=== PATIENT | female | born 1965 ===

== ENCOUNTER 2020-07-14 09:00 | Outpatient (REF) | payer OTHER, SELFPAY | END 2020-07-14 09:01 | disposition home or self-care (01) | LOC: HO.NEURO 09:00 | PROVIDERS: Visit Provider Internal Medicine | DX: Z13.89 Encounter for screening for other disorder (principal) ==

== ENCOUNTER → 2021-04-11 14:48 | Outpatient (BNVA) | payer OTHER, SELFPAY | PROVIDERS: PCP Internal Medicine; Visit Provider Surgery | DX: D17.20 Benign lipomatous neoplasm of skin and subcutaneous tissue of unspecified limb (principal); Z88.6 Allergy status to analgesic agent | CPT/HCPCS: 99202 ==

== ENCOUNTER 2022-01-09 14:02 | Outpatient (REF) | payer OTHER, SELFPAY ==
--- NOTE | ~2022-01-09 | US_ITS ---
EXAMINATION: US VENOUS ULTRASOUND WITH DOPPLER LOWER EXTREMITY, BILATERAL CLINICAL INFORMATION: Bilateral edema evaluate for DVT COMPARISON: None TECHNIQUE: Ultrasound of the deep veins is performed from the hip to the calf with compression sonography and color and pulse Doppler assessment. Spectral analysis with color-flow imaging is performed. FINDINGS: RIGHT: There is normal venous compression and respiratory variation and augmented flow. The visualized common femoral vein, superficial femoral vein, profunda femoral vein, popliteal vein, and the trifurcation region shows no evidence of deep venous thrombosis. There is no significant popliteal fossa cyst. LEFT: There is normal venous compression and respiratory variation and augmented flow. The visualized common femoral vein, superficial femoral vein, profunda femoral vein, popliteal vein, and the trifurcation region shows no evidence of deep venous thrombosis. There is no significant popliteal fossa cyst. If the patient's symptoms persist, followup ultrasound in 5 days 7 days might be of value to exclude proximal propagation from a non-visualized calf vein. US/US venous duplex LE BI IMPRESSION: No DVT demonstrated in the bilateral lower extremity.
[2022-01-09 14:24] LABS: MANUAL DIFF FLAG NO
[2022-01-09 14:34] LABS: Basophils Percent Auto 0.6 % (0-2); Eosinophils Absolute Auto 0.1 X10*3/uL (0.0-0.4); Eosinophils Percent Auto 1.9 % (0-4); Hematocrit 39.3 % (37.0-47.0); Hemoglobin 13.1 g/dl (12.0-16.0); Imm Gran Abs Auto 0.01 X10*3/uL (0.00-0.03); Imm Gran Pct Auto 0.2 % (0.0-0.4); Lymphocytes Absolute Auto 2.2 X10*3/uL (1.2-4.9); Lymphocytes Percent Auto 42.8 % (20-40); Mean Corpuscular HGB Conc 33.3 g/dl (31.0-35.0); Mean Platelet Volume 10.1 fL (9.4-12.3); Monocytes Absolute Auto 0.5 X10*3/uL (0.1-1.2); Monocytes Percent Auto 10.5 % (2-11); Neutrophils Absolute Auto 2.3 x10*3/uL (2.0-8.3); Platelet Count 213 X10*3/uL (160-400); Red Blood Count 4.68 X10*6/uL (4.20-5.50); Red Cell Distribution Width 12.5 % (11.0-16.0); White Blood Count 5.1 X10*3/uL (4.8-10.8)
[2022-01-09 15:16] LABS: Alanine Aminotransferase 27 U/L (0-31); Albumin Level 4.5 g/dL (3.5-5.0); Alkaline Phosphatase 107 U/L (39-117); Anion Gap 14 (12-20); Aspartate Amino Transferase 22 U/L (5-31); Bilirubin Total 1.3 mg/dL (0.0-1.0); Blood Urea Nitrogen 12 mg/dL (9-16); Calcium 9.5 mg/dL (8.4-10.2); Carbon Dioxide 29 mmol/L (22-29); Chloride 104 mmol/L (96-108); Estimated Glomerular Filt Rate > 60; Glucose Random 130 mg/dL (60-115); Potassium 4.2 mmol/L (3.3-5.1); Sodium 143 mmol/L (135-145); Total Protein 7.1 g/dL (6.5-8.0)
[2022-01-09 15:19] LABS: Erythrocyte Sedimentation Rate 5 MM/HR (0-20)
[2022-01-09 16:22] LABS: Creatinine Urine 59.39 mg/dL; Total Protein Urine Random < 7 mg/dL (<12)
== END 2022-01-09 14:03 | disposition home or self-care (01) ==
LOC: HO.US 14:02
PROVIDERS: PCP Internal Medicine; Visit Provider Internal Medicine
DX: R60.0 Localized edema (principal)
CPT/HCPCS: 36415; 80053; 84156; 85025; 85652; 93970

== ENCOUNTER 2022-02-15 11:36 | Day surgery (SDC) | payer OTHER, SELFPAY ==
[2022-02-09 12:15] VITALS: BMI 28.5
--- NOTE | 2022-02-14 10:46 | HO.ANESPROP2 ---
Documented by User: Racquel Brown NP 02/14/22 10:47 HPI - Anesthesia Eval Consult details Narrative: 56yo F for Upper Endoscopy PMFSH Active Problems Active Problems: All Active Problems (Updated 02/09/22 @ 12:12 by Zakiya Centeno RN) Lipoma of extremity (Acute) Past Medical History Medical History (Updated 02/09/22 @ 12:12 by Zakiya Centeno RN) Lipoma of extremity Migraines Family History Family History Brother Cancer Surgical History Surgical History (Updated 02/09/22 @ 12:12 by Zakiya Centeno RN) H/O colonoscopy History of breast biopsy (~2015) History of hysterectomy (~2010) History of tonsillectomy Social History Social History Patient Tobacco Use Status: Never used Tobacco Use of substances other than those prescribed or required for medical reasons: No Are you DNR?: No Advance Directives: No Advance Directives Information Provided: Yes Advance Directives on File: No Meds Allergies Allergy/AdvReac Type Severity Reaction Status Date / Time codeine Allergy Unknown Verified 04/11/21 15:08 Home Medications Medication Instructions Recorded Confirmed Last Taken Type No Known Home Meds 04/11/21 02/09/22 Unknown History Exam Exam Date and Time: February 14, 2022 1046 Height,Weight and Vital Signs: Height 5 ft 1 in Weight 68.492 kg Pertinent Lab Results Pertinent Lab Results: Laboratory Tests 01/09/22 01/09/22 14:21 14:21 WBC 5.1 Hgb 13.1 Hct 39.3 Plt Count 213 Sodium 143 Potassium 4.2 Chloride 104 Carbon Dioxide 29 BUN 12 Creatinine 0.82 Assessment and Plan Assessment Anesthesia Assessment: Chart Reviewed Documented by User: Shreya Barr MD 02/15/22 13:49 PMFSH Past Medical History Medical History (Updated 02/09/22 @ 12:12 by Zakiya Centeno RN) Lipoma of extremity Migraines Family History Family History Brother Cancer Family history of problems with anesthesia: No Surgical History Surgical History (Updated 02/09/22 @ 12:12 by Zakiya Centeno RN) H/O colonoscopy History of breast biopsy (~2015) History of hysterectomy (~2010) History of tonsillectomy History of Problems with Anesthesia: No Social History Social History Patient Tobacco Use Status: Never used Tobacco Use of substances other than those prescribed or required for medical reasons: No Are you DNR?: No Advance Directives: No Advance Directives Information Provided: Yes Advance Directives on File: No Meds Allergies Allergy/AdvReac Type Severity Reaction Status Date / Time codeine Allergy Unknown Verified 04/11/21 15:08 Home Medications Medication Instructions Recorded Confirmed Last Taken Type No Known Home Meds 04/11/21 02/09/22 Unknown History Exam Height,Weight and Vital Signs: Height 5 ft 1 in Weight 68.492 kg Vital Signs Temp Pulse Resp BP Pulse Ox O2 Del Method 02/15/22 12:10 98.8 F 85 16 128/72 100 Room Air Airway Mallampati Class: II TM Dist: >3cm Neck ROM: Full Loose/Missing/Broken Teeth: Yes (Missing bottom) Heart: RRR Lungs: CTAB Assessment and Plan Assessment Anesthesia Assessment: Anesthesia Plan Discussed Final Anesthetic Review Family History of Problems with Anesthesia: No History of Problems with Anesthesia: No NPO: Yes ASA Class: II Final Preanesthetic Review: No Changes in Pt Med Stat, Meds/Allgs Chart Reviewed, Consent Obtained/Reviewed and Anes Risks/Benef Reviewed Patient Risk: Low Procedure Risk: Low Assessment/Block/Sedation in SS: Assess/Block/Sedation-SS Anesthetic Plan Anesthetic Plan: MAC: Disposition: Standard PACU
[2022-02-15 12:10] VITALS: BP 128/72; PULSE 85; RESP 16; TEMP 37.1; O2SAT 100
[2022-02-15] MEDS: Lactated Ringers 1,000 ML 100 ML IVCONT (12:39)
--- NOTE | 2022-02-15 13:21 | MHC.SHP ---
Pre-Procedural Eval Section A Date of Service: 02/15/22 Section B Chief Complaint: Epigastric pain Details of Present Illness: see H&P no change Relevant Family History (Specify if Yes): No Relevant Social History: None Present Medications: None Medical History: No relevant PMH Allergies: Allergies Allergy/AdvReac Type Severity Reaction Status Date / Time codeine Allergy Unknown Verified 04/11/21 15:08 Review of Systems Sugical H&P ROS: Negative: Constitution, Cardiovascular, Respiratory, Neurological, Psychiatric, Hem-Onc, Allergic/Immunologic, Gastrointestinal, Genitourinary, Musculoskeletal, Integumentary, Endocrine and Eyes/Ears/Nose/Throat Exam Surgical H&P Exam: Normal: HEENT, Normal: Heart, Normal: Lungs, Normal: Extremities, Normal: Abdomen, Normal: Skin and Normal: Neurological Plan Diagnosis/Plan: Unchanged I have reviewed the history and physical and performed a pertinent physical examination on my patient. No changes have occurred unless specified.
--- NOTE | 2022-02-15 13:40 | P.BOP_ITS ---
Brief Operative Note Date of Service: 02/15/22 Pre-op diagnosis: epigastric pain Post-op diagnosis: same Procedure: egd Surgeon: Ki Lucas Anesthesia: MAC Was an Leather Colorer used for this Procedure?: No Estimated blood loss (mL): 5 Pathology: other Condition: stable Disposition: PACU
[2022-02-15 13:44] VITALS: BP 108/65; PULSE 72; RESP 16; TEMP 36.3; O2SAT 96
[2022-02-15 13:59] VITALS: BP 111/72; PULSE 74; RESP 16; TEMP 36.3; O2SAT 97
--- NOTE | 2022-02-15 23:45 | OP_ITS ---
SURGEON: Ki Lucas MD PREOPERATIVE DIAGNOSIS: POSTOPERATIVE DIAGNOSIS: PROCEDURE PERFORMED: Upper endoscopy with biopsy on 02/15/22 ESTIMATED BLOOD LOSS: COMPLICATIONS: ANESTHESIA: ASSISTANTS: SPECIMENS: DESCRIPTION OF PROCEDURE: History and physical performed. The risks and benefits of the procedure were explained to the patient. Informed consent was obtained. The patient was placed in the left lateral decubitus position. The Olympus video gastroscope was introduced into the esophagus, stomach, and duodenum. Examination was performed. The scope was removed. She tolerated the procedure well and was transferred to recovery area in stable condition. FINDINGS: Esophagus: The esophagus was normal. There was a slightly irregular EG junction. There was no esophagitis. Biopsies were obtained from the EG junction. There was a small hiatal hernia. Stomach: The stomach showed no evidence of masses, ulcers, or polyps. Antral biopsies were obtained. Duodenum: The bulb and second portion were normal. IMPRESSION: Hiatal hernia. RECOMMENDATION: Follow up the biopsy results. MD BLAINE Judge/ALEJOL / [id number] MTDD
== END 2022-02-15 14:34 | disposition home or self-care (01) ==
PROVIDERS: PCP Internal Medicine; Visit Provider Internal Medicine Gastroenterology
PROC: 0DJ08ZZ Inspection of Upper Intestinal Tract, Via Natural or Artificial Opening Endoscopic (ICD-10-PCS; CPT 43235; principal; 2022-02-15 13:10)
DX: R10.13 Epigastric pain (principal); Z86.19 Personal history of other infectious and parasitic diseases; K44.9 Diaphragmatic hernia without obstruction or gangrene; G43.909 Migraine, unspecified, not intractable, without status migrainosus; Z88.8 Allergy status to other drugs, medicaments and biological substances
CPT/HCPCS: 43239; 88305; 88342

== ENCOUNTER 2022-03-02 15:27 | Outpatient (REF) | payer OTHER, SELFPAY ==
--- NOTE | ~2022-03-02 | US_ITS ---
EXAMINATION: ULTRASOUND EXTREMITY NONVASCULAR CLINICAL INFORMATION: Swelling right ankle COMPARISON: None TECHNIQUE: Grayscale and color imaging of the anterior lateral right foot/ankle. Comparison imaging of the left side was performed. FINDINGS: No solid or cystic soft tissue mass or fluid collection is appreciated by ultrasound. US/US extremity nonvascular IMPRESSION: No abnormality appreciated by ultrasound.
== END 2022-03-02 15:28 | disposition home or self-care (01) ==
LOC: HO.US 15:27
PROVIDERS: Visit Provider Internal Medicine
DX: R22.2 Localized swelling, mass and lump, trunk (principal)
CPT/HCPCS: 76882

== ENCOUNTER → 2022-09-13 15:09 | Outpatient (BNVA) | payer OTHER, SELFPAY | PROVIDERS: PCP Internal Medicine; Referring Provider Internal Medicine; Visit Provider Surgery | DX: Z13.89 Encounter for screening for other disorder (principal) ==

== ENCOUNTER 2022-10-03 09:25 | Day surgery (SDC) | payer OTHER, SELFPAY ==
[2022-09-29 09:20] VITALS: BMI 27.8
[2022-10-03] VITALS (9 sets, daily range): BP systolic 133–165; BP diastolic 69–88; PULSE 62–89; RESP 15–18; TEMP 36.6–37; O2SAT 100
[2022-10-03] MEDS: Lactated Ringers 1,000 ML 50 ML IVCONT (10:08)
--- NOTE | 2022-10-03 10:45 | MHC.SHP ---
Pre-Procedural Eval Section A Date of Service: 10/03/22 The patient is an INPATIENT: No Changes since office visit: No Cold of Flu in the past 2 weeks, No New Medical Problems, No Changes in Medication and No Patient answered all questions The History & Physical has been completed within 30 days and I have reviewed it.: Yes Section B Chief Complaint: Benign lipomatous neoplasm of skin and subcutaneou Allergies: Allergies Allergy/AdvReac Type Severity Reaction Status Date / Time codeine Allergy Severe Anaphylaxis Verified 10/03/22 09:43 Plan I have reviewed the history and physical and performed a pertinent physical examination on my patient. No changes have occurred unless specified. Time Spent With Patient Time: Total time managing care of this patient today ____ minutes.
--- NOTE | 2022-10-03 11:04 | HO.ANESPROP2 ---
HPI - Anesthesia Eval Consult details Narrative: for excis lipoma rt. ankle PMFSH Active Problems Active Problems: All Active Problems (Updated 09/13/22 @ 16:00 by Fabian Fink MD) Keloid (Acute) Lipoma of extremity (Acute) Past Medical History Medical History (Updated 09/13/22 @ 16:00 by Fabian Fink MD) Keloid Lipoma of extremity Migraines Family History Family History Brother Cancer Family history of problems with anesthesia: No Surgical History Surgical History (Updated 09/29/22 @ 09:18 by Zakiya Centeno RN) H/O colonoscopy History of breast biopsy (~2015) History of esophagogastroduodenoscopy (EGD) History of hysterectomy (~2010) History of tonsillectomy History of Problems with Anesthesia: No Social History Social History Patient Tobacco Use Status: Never used Tobacco Use of substances other than those prescribed or required for medical reasons: No Advance Directives: No Advance Directives Information Provided: Yes Recently lost weight without trying: No Nutrition Risks: No Nutritional Risk Meds Allergies Allergy/AdvReac Type Severity Reaction Status Date / Time codeine Allergy Severe Anaphylaxis Verified 10/03/22 09:43 Active Medications: Current Medications Lactated Ringer's (Lr) 1,000 mls @ 50 mls/hr IVCONT .Q20H RITA Last Admin: 10/03/22 10:08 Dose: 50 mls/hr Exam Exam Date and Time: October 03, 2022 1104 Height,Weight and Vital Signs: Height 5 ft 1 in Weight 66.678 kg Last Vital Signs Temp 98.6 F 10/03/22 09:48 Pulse 77 10/03/22 09:48 Resp 16 10/03/22 09:48 BP 140/82 H 10/03/22 09:48 Pulse Ox 100 10/03/22 09:48 O2 Del Method Room Air 10/03/22 09:48 Airway Mallampati Class: I TM Dist: <=3cm Neck ROM: Full Heart: ok Lungs: ok Assessment and Plan Assessment Anesthesia Assessment: Anesthesia Plan Discussed and Chart Reviewed Final Anesthetic Review Family History of Problems with Anesthesia: No History of Problems with Anesthesia: No NPO: Yes ASA Class: II Final Preanesthetic Review: No Changes in Pt Med Stat, Meds/Allgs Chart Reviewed, Consent Obtained/Reviewed and Anes Risks/Benef Reviewed Patient Risk: Low Procedure Risk: Low Anesthetic Plan Anesthetic Plan: MAC: and Agree w/ Assess. and Plan Disposition: Standard PACU
--- NOTE | 2022-10-03 12:08 | W.PM.OPN ---
Operative Note Operative Note Date of Service: 10/03/22 Narrative: Preop diagnosis: Lipoma right ankle Postop diagnosis: Lipoma right ankle Procedure: Excision of lipoma from the right ankle under anesthesia Surgeon: Fabian Fink MD The patient is a 57-year-old female with note of a lipomatous mass mass on the lateral aspect of the right ankle. She wanted this removed because of discomfort especially when wearing shoes. She understood the technique of excision under anesthesia. She was aware of the risks, benefits, and alternatives. She was brought to the operating room. She was placed supine under monitored anesthesia care. The right foot all the way to the distal lower leg was prepped and draped in the usual sterile fashion. The patient did not receive any prophylactic antibiotic. I generously infiltrated the planned line of incision with lidocaine 1%. I made the incision on the skin overlying this lipoma using a blade 15. This was carried down with electrocautery through the full-thickness of the skin and part of the subcutaneous fat until I was able to visualize the lipoma. I sharply dissected the lipoma off of the rest of the subcutaneous layer using Metzenbaum scissors as well as electrocautery. The lipoma had a lot of fibrous adhesions so we had to proceed slowly. A well-defined plane of dissection was then noted above the fascia of the foot and we followed this and the lipoma along this well-defined plane.The rest of the adhesions to the subcutaneous layer were divided until the entire lipoma was completely . This was sent as a specimen. The lipoma measured about 4 cm x 3.5 cm. I reviewed the area of excision. I cauterized oozing areas. Once hemostasis was ensured, I proceeded to reapposed the subcutaneous layer Dexon 3-0 interrupted sutures. Skin closure was achieved with thickness nylon 3-0 simple interrupted sutures. Dressings were applied. The area was infiltrated with Marcaine 0.5% for postop analgesia. I wrapped the ankle with a Cleo roll. The procedure was then completed. The patient tolerated the procedure well. There were no immediate complications. Initial and final counts of sponges and instruments were correct. Estimated blood loss was about 20 cc. The patient then awakened fully and transferred to the recovery room with stable vital signs.
== END 2022-10-03 14:42 | disposition home or self-care (01) ==
PROVIDERS: PCP Internal Medicine; Visit Provider Surgery
PROC: (CPT 27632; principal; 2022-10-03 12:00)
DX: D17.23 Benign lipomatous neoplasm of skin and subcutaneous tissue of right leg (principal); L91.0 Hypertrophic scar; Z88.8 Allergy status to other drugs, medicaments and biological substances
CPT/HCPCS: 27632; 88304; J2250; J2795; J3010

== ENCOUNTER → 2022-10-16 14:54 | Outpatient (BNVA) | payer OTHER, SELFPAY | PROVIDERS: PCP Internal Medicine; Referring Provider Internal Medicine; Visit Provider Surgery ==

== ENCOUNTER → 2022-10-23 14:53 | Outpatient (BNVA) | payer OTHER, SELFPAY | PROVIDERS: PCP Internal Medicine; Visit Provider Surgery | DX: D17.20 Benign lipomatous neoplasm of skin and subcutaneous tissue of unspecified limb (principal) ==

== ENCOUNTER 2022-12-04 11:05 | Outpatient (REF) | payer OTHER, SELFPAY ==
[2022-12-04 14:06] LABS: MANUAL DIFF FLAG NO
[2022-12-04 14:12] LABS: Basophils Percent Auto 0.4 % (0-2); Eosinophils Absolute Auto 0.1 X10*3/uL (0.0-0.4); Eosinophils Percent Auto 1.6 % (0-4); Hematocrit 39.6 % (37.0-47.0); Hemoglobin 12.8 g/dl (12.0-16.0); Imm Gran Abs Auto 0.02 X10*3/uL (0.00-0.03); Imm Gran Pct Auto 0.4 % (0.0-0.4); Lymphocytes Absolute Auto 2.2 X10*3/uL (1.2-4.9); Mean Corpuscular HGB Conc 32.3 g/dl (31.0-35.0); Mean Corpuscular Hemoglobin 27.2 pg (27.0-33.0); Mean Corpuscular Volume 84.3 fL (80.0-98.0); Mean Platelet Volume 11.1 fL (9.4-12.3); Monocytes Absolute Auto 0.5 X10*3/uL (0.1-1.2); Monocytes Percent Auto 9.1 % (2-11); Neutrophils Absolute Auto 2.3 x10*3/uL (2.0-8.3); Neutrophils Percent Auto 45.5 % (45-73); Platelet Count 202 X10*3/uL (160-400); Red Cell Distribution Width 12.4 % (11.0-16.0); White Blood Count 5.1 X10*3/uL (4.8-10.8)
[2022-12-04 14:35] LABS: Alanine Aminotransferase 38 U/L (0-31); Albumin Level 4.2 g/dL (3.5-5.0); Alkaline Phosphatase 108 U/L (39-117); Anion Gap 12 (12-20); Aspartate Amino Transferase 26 U/L (5-31); Bilirubin Total 1.1 mg/dL (0.0-1.0); Blood Urea Nitrogen 10 mg/dL (9-16); Calcium 9.2 mg/dL (8.4-10.2); Carbon Dioxide 27 mmol/L (22-29); Chloride 107 mmol/L (96-108); Cholesterol 165 mg/dL; Estimated Glomerular Filt Rate > 60; Glucose Fasting 87 mg/dL (60-99); HDL Cholesterol 72 mg/dL; LDL Cholesterol Calculated 72 mg/dl; Potassium 3.8 mmol/L (3.3-5.1); Sodium 142 mmol/L (135-145); Total Protein 6.9 g/dL (6.5-8.0); Triglycerides 107 mg/dL
== END 2022-12-04 11:06 | disposition home or self-care (01) ==
LOC: HO.10HDL 11:05
PROVIDERS: Visit Provider Internal Medicine
DX: Z00.00 Encounter for general adult medical examination without abnormal findings (principal); G47.00 Insomnia, unspecified; I10 Essential (primary) hypertension; Z90.710 Acquired absence of both cervix and uterus
CPT/HCPCS: 36415; 80053; 80061; 85025

== ENCOUNTER 2023-10-10 09:25 | Outpatient (REF) | payer MEDICAID, SELFPAY ==
[2023-10-10 11:41] LABS: Alanine Aminotransferase 18 U/L (0-31); Anion Gap 11 (12-20); Aspartate Amino Transferase 18 U/L (5-31); Bilirubin Total 1.2 mg/dL (0.0-1.0); Blood Urea Nitrogen 10 mg/dL (9-16); Calcium 9.2 mg/dL (8.4-10.2); Carbon Dioxide 27 mmol/L (22-29); Chloride 106 mmol/L (96-108); Estimated Glomerular Filt Rate > 60; Glucose Random 91 mg/dL (60-115); Potassium 3.8 mmol/L (3.3-5.1); Sodium 140 mmol/L (135-145)
== END 2023-10-10 09:26 | disposition home or self-care (01) ==
LOC: HO.10HDL 09:25
PROVIDERS: Visit Provider Internal Medicine
DX: G56.01 Carpal tunnel syndrome, right upper limb (principal); M65.849 Other synovitis and tenosynovitis, unspecified hand; R74.01 Elevation of levels of liver transaminase levels; Z00.00 Encounter for general adult medical examination without abnormal findings; Z90.710 Acquired absence of both cervix and uterus
CPT/HCPCS: 36415; 80053

== ENCOUNTER 2023-10-26 14:26 | Outpatient (REF) | payer MEDICAID, SELFPAY ==
--- NOTE | 2023-10-26 14:34 | EMG_ITS ---
Chief complaint: Right hand pain and numbness, swollen fingers Patient reports that 10 years ago had EMG that showed CTS but did not have surgery. Reason for referral: Evaluate for Carpal Tunnel Syndrome Referred by: Dr. Mckeon Procedure done: Right upper extremity NCS/EMG Precautions and/or limitations: None The limb temperature was monitored continuously and remained between 32-36 degrees C during the performance of the NCS. Nerve Conduction Studies Anti Sensory Summary Table ?Stim Site NR Onset (ms) Norm Onset (ms) Peak (ms) Norm Peak (ms) O-P Amp (?V) Norm O-P Amp Site1 Site2 Delta-0 (ms) Dist (cm) Kevin (m/s) Norm Kevin (m/s) Right Median Anti Sensory (2nd Digit) Wrist ? 3.6 4.4 <3.6 31.6 >10 Wrist 2nd Digit 3.6 14.0 39 Right Radial Anti Sensory (Thumb) Forearm ? 1.3 2.0 <3.1 56.3 Forearm Thumb 1.3 0.0 Right Ulnar Anti Sensory (5th Digit) Wrist ? 2.0 2.8 <3.7 38.1 >15.0 Wrist 5th Digit 2.0 14.0 70 Motor Summary Table ?Stim Site NR Onset (ms) Norm Onset (ms) O-P Amp (mV) Norm O-P Amp iAmp (mV) Amp (1st) (%) Site1 Site2 Delta-0 (ms) Dist (cm) Kevin (m/s) Norm Kevin (m/s) Right Median Motor (Abd Poll Brev) Wrist ? 4.9 <3.9 10.5 >4.5 12.6 100.0 Elbow Wrist 4.2 18.0 43 >45 Elbow ? 9.1 10.2 12.3 97.1 Right Ulnar Motor (Abd Dig Minimi) Wrist ? 2.7 <3.0 8.3 >5 10.4 100.0 B Elbow Wrist 3.0 17.0 57 >45 B Elbow ? 5.7 7.7 9.5 92.8 A Elbow B Elbow 1.5 10.0 67 >45 A Elbow ? 7.2 7.5 9.4 90.4 EMG ?Side Muscle Nerve Root Ins Act Fibs Psw Amp Dur Poly Recrt Int Pat Comment Right 1stDorInt Ulnar C8-T1 Nml Nml Nml Nml Nml 0 Nml Complete Right FlexCarRad Median C6-7 Nml Nml Nml Nml Nml 0 Nml Complete Right Biceps Musculocut C5-6 Nml Nml Nml Nml Nml 0 Nml Complete Right Triceps Radial C6-7-8 Nml Nml Nml Nml Nml 0 Nml Complete Right Deltoid Axillary C5-6 Nml Nml Nml Nml Nml 0 Nml Complete FINDINGS: Right median motor nerve showed prolonged distal latency, normal amplitude and slow conduction velocity. Right median sensory nerve showed prolonged peak latency. All other nerves tested were within normal. Concentric needle EMG was performed in selected muscles of the right upper extremity. Study did not reveal signs of electric abnormalities as shown in the table below. IMPRESSION: 1. This is an abnormal study. 2. There is electrodiagnostic evidence for right moderate-severe median neuropathy at the wrist, consistent with carpal tunnel syndrome. 3. There is no electrodiagnostic evidence for ulnar neuropathy, brachial plexopathy, or cervical radiculopathy. Thank you for your kind referral. Devi Garcia MD, LEONARDO Board Certified, [place] Board [employer] and Rehabilitation (ABPMR) Board Certified, [place] Board of Electrodiagnostic Medicine (ABEM) [place] [id number] [facility]
== END 2023-10-26 14:27 | disposition home or self-care (01) ==
LOC: HO.NEURO 14:26
PROVIDERS: PCP Internal Medicine; Visit Provider Internal Medicine
DX: G56.01 Carpal tunnel syndrome, right upper limb (principal)
CPT/HCPCS: 95886; 95909

== ENCOUNTER → 2023-10-26 14:34 | Outpatient (BNV) | payer MEDICAID, SELFPAY | PROVIDERS: PCP Internal Medicine; Visit Provider Physical Medicine & Rehabilitation | DX: G56.01 Carpal tunnel syndrome, right upper limb (principal); G56.11 Other lesions of median nerve, right upper limb | CPT/HCPCS: 95886; 95909 ==

== ENCOUNTER 2024-01-19 13:49 | Emergency (ER) | payer MEDICAID, SELFPAY ==
--- NOTE | ~2024-01-19 | XR_ITS ---
EXAMINATION: XR CHEST, 2 VIEWS CLINICAL INFORMATION: Productive cough COMPARISON: None. TECHNIQUE: PA and lateral views of the chest were obtained. FINDINGS: Lungs are clear. No consolidation, pneumothorax, or pleural effusion. Cardiac and mediastinal contours are normal. Pulmonary vasculature is unremarkable. Trachea is midline. Osseous structures are unremarkable. XR/XR chest 2V IMPRESSION: Normal chest radiographs.
--- NOTE | 2024-01-19 13:51 | ED_ITS ---
HPI - General Adult General Chief complaint: Upper Respiratory Symptoms Stated complaint: Headache/Sore Throat Time Seen by Provider: 01/19/24 15:35 Source: patient Mode of arrival: ambulatory Limitations: no limitations History of Present Illness HPI narrative: Patient is a 58-year-old female who presents emergency department for evaluation. For the past 6 days she has been experiencing bilateral maxillary sinus pain and pressure as well as a sore throat, has had nasal congestion and a productive cough with yellow sputum. She has experienced an intermittent headache. Has no associated dizziness, vision changes, neck pain, neck stiffness, chest pain, shortness of breath, numbness or tingling of her extremities. Denies any known sick contacts. Related Data Previous Rx's ?Medication ?Instructions ?Recorded ibuprofen 600 mg tablet 600 mg PO Q6H PRN pain #30 tabs 10/03/22 tramadol 50 mg tablet 50 mg PO Q6H PRN pain #20 tabs 10/03/22 amoxicillin 875 mg-potassium 1 tab PO BID #14 tabs 01/19/24 clavulanate 125 mg tablet Allergies Allergy/AdvReac Type Severity Reaction Status Date / Time codeine Allergy Severe Anaphylaxis Verified 01/19/24 13:53 Review of Systems Review of Systems: Yes all other systems are reviewed and are negative PMFSH Past Medical History Attestation statement: The following information was validated with the patient. Source: old records reviewed Medical History Keloid Migraines Lipoma of extremity Surgical History Status post excision of lipoma (~10/03/22) History of esophagogastroduodenoscopy (EGD) H/O colonoscopy History of breast biopsy (~2015) History of tonsillectomy History of hysterectomy (~2010) Family History Family History Brother Cancer Social History Social History Patient Tobacco Use Status: Never used Tobacco Advance Directives: No Advance Directives Information Provided: No Physical Exam ED Vital Signs: Vital Signs - 24 hr 01/19/24 13:52 01/19/24 15:55 Temperature 96.7 F L 98.5 F Pulse Rate 91 86 Respiratory Rate 16 16 Blood Pressure 166/76 H 150/84 H Pulse Oximetry 97 100 Oxygen Delivery Method Room Air Room Air BMI result Body Mass Index 26.4 Appearance: Alert.?Oriented to person, place and time. No acute distress.?Normal affect. Eyes: Pupils equal, round and reactive to light.? ENT: Pharynx normal.??TM normal bilaterally. Maxillary sinus tenderness upon palpation Neck: Normal inspection.? Neck supple.? No cervical adenopathy? CVS: Heart sounds normal. Normal heart rate and rhythm.? Pulses normal.?? Respiratory: No respiratory distress.? Lung sounds clear to auscultation bilaterally?? Abdomen: Soft and non-tender. Normoactive bowel sounds. Skin: Skin warm and dry.? Normal skin color.? Extremities: No lower extremity edema.? Neuro: Moves all extremities spontaneously. Sensation intact bilaterally. Ambulates with normal steady gait. Course Course Course Narrative: This is a rapid medical exam performed by Alexandro Mcnally NP: Additional HPI, ROS, PE not included below will be deferred to primary provider. Patient is a 58-year-old female presenting to the ED with complaint of sinus pain and pressure as well as sore throat since Sunday. Nasal congestion, cough prouctive of yellow sputum. Plan: viral and strep swabs, CXR Medical Decision Making Medical Decision Making [facility] Narrative: Patient is a 58-year-old female with past medical history of migraines, presenting for evaluation of upper respiratory symptoms. COVID-19 /influenza/RSV testing negative. Strep a testing negative. Examination not consistent with RPA/[employer]. At this time history and physical exam not consistent with ACS/PE/pneumonia. Well-appearing, nontoxic, afebrile, no tachycardia or tachypnea/hypoxia. Speaking clear full sentences, ambulatory with steady gait. Discussed conservative treatment including rest, hydration, Tylenol/ibuprofen as needed for fever and body aches, saline nasal spray, humidifier, over-the- counter cold medication. Advised to follow-up with primary care provider as needed, discussed reasons to return back to the emergency department. All questions were answered. Patient discharged home in stable condition. Differential Diagnosis Differential Diagnoses: The differential diagnosis associated with the presentation includes ( See narrative above) Admission/Observation Consideration of admission/observation: Escalation of care including admission/observation considered ( see narrative above) Lab Data MDM Lab Attestation statement: I reviewed the patient's lab results. ( see narrative above) Labs: Lab Results 01/19/24 Range/Units 13:59 Influenza Type A (PCR) NEGATIVE (Negative) Influenza Type B (PCR) NEGATIVE (Negative) RSV RNA Qual (PCR) NEGATIVE (Negative) SARS-CoV-2 RNA (RT-PCR) NEGATIVE (Negative) S. pyogenes GrpA MIGUELANGEL Negative (Negative) Independent Interpretation I performed an independent interpretation of an: Plain X-Ray (No acute infiltrate or consolidation) Radiology Impression Discussion of test interpretation with radiology: I have reviewed the radiologist's reading. Radiologist Impression: XR/XR chest 2V IMPRESSION: No acute cardiopulmonary findings. External Record Review External record reviewed: Outpatient record Prescription Management I considered prescription management with: Pain Medication ( acetaminophen/ibuprofen) Discharge Plan Discharge Clinical Impression: Acute maxillary sinusitis Patient Disposition: Home, Self-Care Instructions: Sinusitis (ED) Additional Instructions: Testing today for COVID-19/flu/strep are negative. Complete the entire course of antibiotics as prescribed. Be sure to rest, stay well hydrated drinking plenty of fluids, eat small frequent meals. You can take ibuprofen 200 mg, 3 tablets (600mg) every 6-8 hours as needed for pain, in addition to Tylenol 500 mg, 2 tablets (1,000mg) every 4-6 hours as needed for pain, but not to exceed 3 doses daily (3,000mg).? [id number] cold medications may be helpful as well for symptoms. Saline nasal spray, humidifier may be helpful for nasal congestion. You may return to the emergency department with any new or worsening symptoms or concerns. Follow-up with your primary care provider as needed. Prescriptions: New amoxicillin-pot clavulanate 875-125 mg tablet 1 tab PO BID Qty: 14 0RF No Action tramadol 50 mg tablet 50 mg PO Q6H PRN (Reason: pain) Qty: 20 0RF ibuprofen 600 mg tablet 600 mg PO Q6H PRN (Reason: pain) Qty: 30 0RF Referrals: Rachel Mckeon MD [Primary Care Provider] - Print Language: Yi
[2024-01-19 13:52] VITALS: BP 166/76; PULSE 91; RESP 16; TEMP 35.9; O2SAT 97; BMI 26.4
[2024-01-19 14:37] LABS: IDNOW Serial# 08D9AD1C; Strep A Nucleic Acid Negative (Negative)
[2024-01-19 14:47] LABS: Influenza A PCR NEGATIVE (Negative); Influenza B PCR NEGATIVE (Negative); Resp Syncy Virus RNA Qual PCR NEGATIVE (Negative); SARS COV2 PCR INHOUSE NEGATIVE (Negative)
[2024-01-19 15:55] VITALS: BP 150/84; PULSE 86; RESP 16; TEMP 36.9; O2SAT 100
== END 2024-01-19 16:33 | disposition home or self-care (01) ==
PROVIDERS: Registered Nurse Emergency; Emergency Provider Emergency Medicine; PCP Internal Medicine
DX: J01.00 Acute maxillary sinusitis, unspecified (principal); Z03.818 Encounter for observation for suspected exposure to other biological agents ruled out; J02.9 Acute pharyngitis, unspecified; R05.9 Cough, unspecified
CPT/HCPCS: 0241U; 71046; 87651; 99283

== ENCOUNTER 2024-05-23 21:58 | Emergency (ER) | payer OTHER, SELFPAY ==
--- NOTE | ~2024-05-23 | CT_ITS ---
EXAMINATION: CT HEAD WITHOUT CONTRAST CLINICAL INFORMATION: New onset headache with hypertension. COMPARISON: None available. TECHNIQUE: Contiguous axial imaging was performed from the skull base to vertex without intravenous administration of contrast. This CT examination was performed using dose optimization techniques as appropriate, variously including the following: *Automated exposure control *Adjustment of mA and/or kV according to patient size (this includes techniques or standardized protocols for targeted exams where dose is matched to indication/reason for exam; i.e. extremities or head) *Use of iterative reconstruction technique DLP: 630 mGy-cm FINDINGS: No intracranial hemorrhage, tumors or acute infarcts identified. The ventricles and sulci are normal in size and configuration. No focal parenchymal lesions of the brain or abnormal extra-axial fluid collections identified. Incidental note made of a 3 mm focus of macroscopic fat along the left tentorial leaf which may represent a small tentorial lipomatous focus. (Series 2 image 20). No extracranial soft tissue inflammatory changes. No significant opacification of the visualized paranasal sinuses, mastoid air cells and middle ear cavities. Minimal calcific atherosclerotic plaques within the cavernous portions of the internal carotid arteries. CT/CT head/brain wo IV con IMPRESSION: *Minimal calcific atherosclerosis of the cavernous portions of the internal carotid artery; otherwise, normal unenhanced CT of the head. No intracranial hemorrhage. Electronically signed by: Gulshan Ramirez MD 05/24/2024 06:59 AM [facility]
[2024-05-23 22:08] VITALS: BP 128/87; PULSE 97; RESP 17; TEMP 36.6; O2SAT 99; BMI 26.4
[2024-05-23 23:28] LABS: MANUAL DIFF FLAG NO
[2024-05-23 23:30] LABS: Basophils Percent Auto 0.3 % (0-2); Eosinophils Absolute Auto 0.1 X10*3/uL (0.0-0.4); Eosinophils Percent Auto 1.1 % (0-4); Hematocrit 38.5 % (37.0-47.0); Hemoglobin 13.1 g/dl (12.0-16.0); Imm Gran Abs Auto 0.02 X10*3/uL (0.00-0.03); Imm Gran Pct Auto 0.3 % (0.0-0.4); Lymphocytes Absolute Auto 2.3 X10*3/uL (1.2-4.9); Lymphocytes Percent Auto 32.6 % (20-40); Mean Corpuscular Hemoglobin 27.8 pg (27.0-33.0); Mean Corpuscular Volume 81.7 fL (80.0-98.0); Mean Platelet Volume 9.8 fL (9.4-12.3); Monocytes Absolute Auto 0.7 X10*3/uL (0.1-1.2); Monocytes Percent Auto 10.3 % (2-11); Neutrophils Absolute Auto 3.9 x10*3/uL (2.0-8.3); Neutrophils Percent Auto 55.4 % (45-73); Platelet Count 200 X10*3/uL (160-400); Red Blood Count 4.71 X10*6/uL (4.20-5.50); Red Cell Distribution Width 12.1 % (11.0-16.0); White Blood Count 7.1 X10*3/uL (4.8-10.8)
[2024-05-23 23:45] LABS: Alanine Aminotransferase 21 U/L (0-31); Albumin Level 4.2 g/dL (3.5-5.0); Alkaline Phosphatase 116 U/L (39-117); Anion Gap 11 (12-20); Aspartate Amino Transferase 24 U/L (5-31); Bilirubin Direct 0.2 mg/dL (0.0-0.5); Bilirubin Total 0.5 mg/dL (0.0-1.0); Blood Urea Nitrogen 19 mg/dL (9-16); Calcium 9.4 mg/dL (8.4-10.2); Carbon Dioxide 26 mmol/L (22-29); Chloride 108 mmol/L (96-108); Creatinine Clr Calc Pharmacy 70.9; Estimated Glomerular Filt Rate > 60; Glucose Random 110 mg/dL (60-115); Lipase 38 U/L (8-78); Potassium 4.1 mmol/L (3.3-5.1); Sodium 141 mmol/L (135-145)
[2024-05-24 00:09] LABS: Influenza A PCR NEGATIVE (Negative); Influenza B PCR NEGATIVE (Negative); Resp Syncy Virus RNA Qual PCR NEGATIVE (Negative); SARS COV2 PCR INHOUSE NEGATIVE (Negative)
[2024-05-24 03:53] VITALS: BP 140/78; PULSE 70; RESP 18; TEMP 36.5; O2SAT 100
[2024-05-24 05:36] VITALS: BP 116/52; PULSE 70; RESP 18; TEMP 36.8; O2SAT 100
--- NOTE | 2024-05-24 05:41 | ED_ITS ---
HPI - Headache General Chief Complaint: Headache Stated Complaint: Headache Time Seen by Provider: 05/24/24 05:40 Source: patient Mode of arrival: ambulatory Limitations: no limitations History of Present Illness ED Provider: HPI Narrative: Patient's history of hypertension no significant history of headache comes here for headache since yesterday started yesterday afternoon lasted for several minutes got better again since last night been having headache patient has had similar headache few months ago which lasted for short time only does have nausea no light sensitivity no vomiting no fever no chills no family history of migraine Related Data Previous Rx's ?Medication ?Instructions ?Recorded ibuprofen 600 mg tablet 600 mg PO Q6H PRN pain #30 tabs 10/03/22 tramadol 50 mg tablet 50 mg PO Q6H PRN pain #20 tabs 10/03/22 amoxicillin 875 mg-potassium 1 tab PO BID #14 tabs 01/19/24 clavulanate 125 mg tablet paafqqhcrw-xpwmtlefjtrcg-ewertukk 1 tab PO Q8-10H PRN haeadace #20 05/24/24 50 mg-325 mg-40 mg tablet tabs Allergies Allergy/AdvReac Type Severity Reaction Status Date / Time codeine Allergy Severe Anaphylaxis Verified 05/23/24 22:11 [facility] Past Medical History Medical History Keloid Migraines Lipoma of extremity Surgical History Status post excision of lipoma (~10/03/22) History of esophagogastroduodenoscopy (EGD) H/O colonoscopy History of breast biopsy (~2015) History of tonsillectomy History of hysterectomy (~2010) Family History Family History Brother Cancer Social History Social History Alcohol intake: current Alcohol intake frequency: holidays/special occasions only Alcohol type: wine Patient Tobacco Use Status: Never used Tobacco Smoked in Last 30 Days: No Use of substances other than those prescribed or required for medical reasons: No Advance Directives: No Advance Directives Information Provided: Yes Do you have a plan to hurt others: No Plan Patient : No Physical Exam 2 Vital Signs: Vital Signs: Last Vital Signs Temp 98.2 F 05/24/24 05:36 Pulse 70 05/24/24 05:36 Resp 18 05/24/24 05:36 BP 116/52 L 05/24/24 05:36 Pulse Ox 100 05/24/24 05:36 O2 Del Method Room Air 05/24/24 05:36 BMI result Body Mass Index 26.4 Medical Decision Making Medical Decision Making [facility] Narrative: Patient with nonspecific headache with history of same in the past localized mostly in the left side possible has a migraine headache CT scan of the head is negative for any acute will prescribe Fioricet Differential Diagnosis Differential Diagnoses: The differential diagnosis associated with the presentation includes SAH/SDH/mass Lab Data [facility] Lab Attestation statement: I reviewed the patient's lab results. 05/23/24 23:24 05/23/24 23:24 Labs: Lab Results 05/23/24 Range/Units 23:24 WBC 7.1 (4.8-10.8) X10*3/uL RBC 4.71 (4.20-5.50) X10*6/uL Hgb 13.1 (12.0-16.0) g/dl Hct 38.5 (37.0-47.0) % MCV 81.7 (80.0-98.0) fL MCH 27.8 (27.0-33.0) pg MCHC 34.0 (31.0-35.0) g/dl RDW 12.1 (11.0-16.0) % Plt Count 200 (160-400) X10*3/uL MPV 9.8 (9.4-12.3) fL Immature Gran % (Auto) 0.3 (0.0-0.4) % Neut % (Auto) 55.4 (45-73) % Lymph % (Auto) 32.6 (20-40) % [place] % (Auto) 10.3 (2-11) % Eos % (Auto) 1.1 (0-4) % Baso % (Auto) 0.3 (0-2) % Lymph # (Auto) 2.3 (1.2-4.9) X10*3/uL [place] # (Auto) 0.7 (0.1-1.2) X10*3/uL Eos # (Auto) 0.1 (0.0-0.4) X10*3/uL Baso # (Auto) 0.0 (0.0-0.2) X10*3/uL Abs Immat Gran (auto) 0.02 (0.00-0.03) X10*3/uL Absolute Neuts (auto) 3.9 (2.0-8.3) x10*3/uL Absolute Nucleated RBC 0.000 (0.0-0.012) X10*3/uL Nucleated RBC % (auto) 0.0 (0.0-0.2) /100WBC Sodium 141 (135-145) mmol/L Potassium 4.1 (3.3-5.1) mmol/L Chloride 108 (96-108) mmol/L Carbon Dioxide 26 (22-29) mmol/L Anion Gap 11 L (12-20) BUN 19 H (9-16) mg/dL Creatinine 0.72 (0.5-1.4) mg/dL Estim Creat Clear Calc 70.9 Estimated GFR > 60 Random Glucose 110 (60-115) mg/dL Calcium 9.4 (8.4-10.2) mg/dL Total Bilirubin 0.5 (0.0-1.0) mg/dL Direct Bilirubin 0.2 (0.0-0.5) mg/dL AST 24 (5-31) U/L ALT 21 (0-31) U/L Alkaline Phosphatase 116 (39-117) U/L Total Protein 7.0 (6.5-8.0) g/dL Albumin 4.2 (3.5-5.0) g/dL Lipase 38 (8-78) U/L Influenza Type A (PCR) NEGATIVE (Negative) Influenza Type B (PCR) NEGATIVE (Negative) RSV RNA Qual (PCR) NEGATIVE (Negative) SARS-CoV-2 RNA (RT-PCR) NEGATIVE (Negative) Discharge Plan Discharge Clinical Impression: Migraine Patient Disposition: Home, Self-Care Instructions: Migraine Headache (ED) Additional Instructions: Likely you have migraine headache Take Fioricet 1 tablet every 8 hours as needed for the headache Follow up with your PCP Prescriptions: New bmimwhevet-xgtcmxygogcwc-awrc 50-325-40 mg tablet 1 tab PO Q8-10H PRN (Reason: haeadace) Qty: 20 0RF No Action amoxicillin-pot clavulanate 875-125 mg tablet 1 tab PO BID Qty: 14 0RF tramadol 50 mg tablet 50 mg PO Q6H PRN (Reason: pain) Qty: 20 0RF ibuprofen 600 mg tablet 600 mg PO Q6H PRN (Reason: pain) Qty: 30 0RF Print Language: Thai
[2024-05-24 07:02] VITALS: BP 116/52; PULSE 70; RESP 18; TEMP 36.8; O2SAT 100
[2024-05-24] MEDS: Butalb/Acetamin/Caff 50/325/40 TABLET 1 TAB PO (07:02)
== END 2024-05-24 07:03 | disposition home or self-care (01) ==
PROVIDERS: Emergency Provider Internal Medicine
DX: G43.909 Migraine, unspecified, not intractable, without status migrainosus (principal); Z03.818 Encounter for observation for suspected exposure to other biological agents ruled out
CPT/HCPCS: 0241U; 70450; 80048; 80076; 83690; 85025; 99284